=== PATIENT | male | born 1980 | race Asian ===

== ENCOUNTER 2017-11-25 07:51 | Emergency (ER) | payer MEDICAID ==
[~2017-11-25] VITALS: Ht 170.2 cm; Wt 57.0 kg
[2017-11-25 07:59] VITALS: BP 143/93
[2017-11-25] MEDS ORDERED: CYCL-1 PO (08:43)
[2017-11-25] MEDS ORDERED: DICL100G15 TOP (08:43)
[2017-11-25] MEDS ORDERED: IBUP-1985 PO (08:43)
[2017-11-25] MEDS ORDERED: ketorolac trometh. 30mg/ml inj. IV ONE (08:50)
== END 2017-11-25 08:58 | disposition home or self-care (01) ==
LOC: ER 07:52
DX: M43.6 Torticollis (principal); Z87.442 Personal history of urinary calculi; Z56.0 Unemployment, unspecified; Z88.5 Allergy status to narcotic agent; Z79.899 Other long term (current) drug therapy
CPT/HCPCS: 96374; 99284; J1885

== ENCOUNTER 2019-07-17 12:01 | Emergency (ER) | payer MEDICAID ==
[~2019-07-17] VITALS: Ht 170.2 cm; Wt 64.8 kg
[~2019-07-17 12:01] MED LIST: CYCL-1 PO; DICL100G15 TOP; FLUC200T PO; IBUP-1985 PO
[2019-07-17 12:08] VITALS: BP 126/93
[2019-07-17] MEDS ORDERED: KETO15CR2 TOP (13:46)
[2019-07-17] MEDS ORDERED: HYDR4CRE2 TOP (13:46)
[2019-07-17] MEDS ORDERED: CEPH250T PO (13:47)
== END 2019-07-17 14:07 | disposition home or self-care (01) ==
LOC: ER 12:03
DX: N47.6 Balanoposthitis (principal); L08.89 Other specified local infections of the skin and subcutaneous tissue; Z56.0 Unemployment, unspecified; Z87.442 Personal history of urinary calculi; Z88.5 Allergy status to narcotic agent; Z79.899 Other long term (current) drug therapy
CPT/HCPCS: 99283